=== PATIENT | male | born 1955 | race Caucasian/White ===

== ENCOUNTER 2018-05-10 04:44 | Emergency (ER) | payer OTHER ==
[2018-05-10] MEDS ORDERED: Sodium Chloride 0.9% 10 ML Syringe FLUSH PRN (04:51)
[2018-05-10] MEDS ORDERED: Sodium Chloride 0.9% 1,000 ML IV ONE (04:51)
[2018-05-10] MEDS ORDERED: Pantoprazole 40 MG Vial IVPUSH ONE (04:51)
[2018-05-10] MEDS ORDERED: Famotidine 20 MG/2 ML SDV IVPUSH ONE (04:51)
[2018-05-10] MEDS ORDERED: Ondansetron 4 MG/2 ML SDV IVPUSH ONE (04:51)
--- NOTE | 2018-05-10 05:01 | EDM.PDOC ---
ED HPI GENERAL MEDICAL PROBLEM - General Chief Complaint: General Stated Complaint: shaky Time Seen by Provider: 05/10/18 04:50 Source of Information: Reports: Patient, RN, RN Notes Reviewed History Limitations: Reports: No Limitations - History of Present Illness INITIAL COMMENTS - FREE TEXT/NARRATIVE: Patient presents to the ED at [facility] complaining of shaking. Patient states he "felt funny" after he ate at a local restaurant. He states he started having severe epigastric pain, nausea, and shakiness. The epigastric pain seem to resolve some, but the shakiness has progressively gotten worse. He denies any chest pain or SOB. No focal neurological issues he is aware of. He denies any diarrhea. No recent abdominal surgeries. He does not think he ate any under cooked foods. He has not experience these symptoms in the past. Onset Date: 05/09/18 - Related Data Allergies Allergy/AdvReac Type Severity Reaction Status Date / Time No Known Allergies Allergy Verified 05/10/18 04:44 Home Meds: Home Meds amLODIPine Besylate [Amlodipine Besylate] 10 mg PO DAILY 05/10/18 [History] Past Medical History Cardiovascular History: Reports: Hypertension Social & Family History - Tobacco Use Smoking Status *Q: Former Smoker Used Tobacco, but Quit: Yes Month/Year Tobacco Last Used: 20 years ED ROS GENERAL - Review of Systems Review Of Systems: See Below Constitutional: Denies: Fever, Chills Respiratory: Denies: Shortness of Breath, Cough Cardiovascular: Denies: Chest Pain, Palpitations GI/Abdominal: Reports: Abdominal Pain (epigastric), Nausea. Denies: Black Stool , Bloody Stool, Diarrhea, Vomiting Skin: Reports: No Symptoms Neurological: Reports: Other (shakiness). Denies: Confusion, Dizziness, Headache ED EXAM, GENERAL - Physical Exam Exam: See Below Exam Limited By: No Limitations General Appearance: Alert, No Apparent Distress Respiratory/Chest: No Respiratory Distress, Lungs Clear, Normal Breath Sounds Cardiovascular: Normal Peripheral Pulses, Tachycardia Peripheral Pulses: 2+: Radial (L), Radial (R) GI/Abdominal: Soft, Tender (epigastric), Abnormal Bowel Sounds (hypoactive) Neurological: Alert, Oriented Skin Exam: Warm, Dry, Intact, Normal Color EKG INTERPRETATION EKG Date: 05/10/18 Time: 05:19 Rhythm: NSR Rate (Beats/Min): 90 [place]: Normal P-Wave: Present QRS: Normal ST-T: Normal QT: Normal MT/PQ Interval: 0.21 Comparison: NA - No Prior EKG EKG Interpretation Comments: 1. Sinus Rhythm with 1st degree AVB Course - Vital Signs Last Recorded V/S: Last Vital Signs Temp 36.4 C 05/10/18 04:45 Pulse 106 H 05/10/18 04:45 Resp 20 05/10/18 04:45 BP 150/76 H 05/10/18 04:45 Pulse Ox 96 05/10/18 04:45 - Orders/Labs/Meds Orders: Active Orders 24 hr Category Date Time Status EKG 12 Lead [EKG Documentation Completion] [RC] STAT Care 05/10/18 04:54 Active UA W/MICROSCOPIC [URIN] Stat Lab 05/10/18 04:52 Ordered Sodium Chloride 0.9% [Saline Flush] Med 05/10/18 04:51 Active 10 ml FLUSH ASDIRECTED PRN Peripheral IV Insertion Adult [OM.PC] Routine Oth 05/10/18 04:51 Ordered Medication Orders Sodium Chloride (Saline Flush) 10 ml FLUSH ASDIRECTED PRN PRN Reason: Keep Vein Open Labs: Laboratory Tests 05/10/18 05/10/18 Range/Units 05:09 05:09 WBC 7.2 (4.0-10.0) x10^3/uL RBC 3.82 L (4.5-6.0) x10^6/uL Hgb 13.6 L (14.0-18.0) g/dL Hct 37.7 L (40.0-52.0) % MCV 98.7 H (78.0-93.0) fL MCH 35.6 H (26.0-32.0) pg MCHC 36.1 H (32.0-36.0) g/dL RDW Coeff of Cassandra 12.3 (10.0-15.0) % Plt Count 191 (130-400) x10^3/uL Neut % (Auto) 63.8 (50.0-80.0) % Lymph % (Auto) 22.2 L (25.0-50.0) % [place] % (Auto) 9.1 (2.0-11.0) % Eos % (Auto) 4.1 H (0.0-4.0) % Baso % (Auto) 0.8 (0.2-1.2) % Sodium 142 (136-145) mmol/L Potassium 4.1 (3.5-5.1) mmol/L Chloride 106 (98-107) mmol/L Carbon Dioxide 28 (21-32) mmol/L Anion Gap 12.1 (10-20) mmol/L BUN 16 (7-18) mg/dL Creatinine 1.0 (0.70-1.30) mg/dL Est Cr Clr Drug Dosing TNP Estimated GFR (MDRD) > 60 Glucose 113 H (74-106) mg/dL Calcium 8.8 (8.5-10.1) mg/dL Corrected Calcium 9.04 (8.5-10.1) mg/dL Total Bilirubin 1.2 H (0.2-1.0) mg/dL AST 15 (15-37) U/L ALT 22 (16-63) U/L Alkaline Phosphatase 98 (46-116) U/L Creatine Kinase 127 (39-308) U/L Troponin I < 0.017 (<=0.056) ng/mL Total Protein 7.2 (6.4-8.2) g/dL Albumin 3.7 (3.4-5.0) g/dL Globulin 3.5 Albumin/Globulin Ratio 1.06 Amylase 62 (25-115) U/L Lipase 146 (73-393) U/L Meds: Medications Generic Name Dose Route Start Last Admin Trade Name Freq PRN Reason Stop Dose Admin Sodium Chloride 10 ml 05/10/18 04:51 Saline Flush FLUSH ASDIRECTED PRN Keep Vein Open Discontinued Medications Generic Name Dose Route Start Last Admin Trade Name Freq PRN Reason Stop Dose Admin Famotidine 20 mg 05/10/18 04:51 05/10/18 05:13 Pepcid IVPUSH 05/10/18 04:52 20 mg ONETIME ONE Administration Sodium Chloride 1,000 mls @ 999 mls/hr 05/10/18 04:51 05/10/18 05:05 Normal Saline IV 05/10/18 05:51 999 mls/hr ONETIME ONE Administration Ondansetron HCl 4 mg 05/10/18 04:51 05/10/18 05:10 Zofran IVPUSH 05/10/18 04:52 4 mg ONETIME ONE Administration Pantoprazole Sodium 40 mg 05/10/18 04:51 05/10/18 05:11 Protonix Iv IVPUSH 05/10/18 04:52 40 mg ONETIME ONE Administration Departure - Departure Time of Disposition: 05:57 Disposition: Home, Self-Care 01 Condition: Good Clinical Impression: Gastritis Qualifiers: Gastritis type: unspecified gastritis Chronicity: acute Gastritis bleeding: without bleeding Qualified Code(s): K29.00 - Acute gastritis without bleeding - Discharge Information *PRESCRIPTION DRUG MONITORING PROGRAM REVIEWED*: Not Applicable *COPY OF PRESCRIPTION DRUG MONITORING REPORT IN PATIENT NOREEN: Not Applicable Instructions: Gastritis, Adult Referrals: PCP,Unobtain [Primary Care Provider] - Forms: ED Department Discharge Additional Instructions: 1. Stay well hydrated and rest 2. Probably avoid greasy, fatty foods and see how it goes 3. Recommend starting on Prilosec once a day 4. See your Primary as symptoms warrant - Problem List Review Problem List Initiated/Reviewed/Updated: Yes - My Orders Last 24 Hours: My Active Orders 05/10/18 04:51 Sodium Chloride 0.9% [Saline Flush] 10 ml FLUSH ASDIRECTED PRN Peripheral IV Insertion Adult [OM.PC] Routine 05/10/18 04:52 UA W/MICROSCOPIC [URIN] Stat 05/10/18 04:54 EKG 12 Lead [EKG Documentation Completion] [RC] STAT - Assessment/Plan Last 24 Hours: My Active Orders 05/10/18 04:51 Sodium Chloride 0.9% [Saline Flush] 10 ml FLUSH ASDIRECTED PRN Peripheral IV Insertion Adult [OM.PC] Routine 05/10/18 04:52 UA W/MICROSCOPIC [URIN] Stat 05/10/18 04:54 EKG 12 Lead [EKG Documentation Completion] [RC] STAT Assessment:: Gastritis Plan: Labs and meds discussed with patient. Consider gastritis as patient responded well to GI meds. Recommend patient start on a PPI and follow up with PCP for possible further testing and treatment.
[2018-05-10 05:36] LABS: CHLORIDE,CL 106 mmol/L (98-107); SODIUM,NA 142 mmol/L (136-145)
[2018-05-10 05:42] LABS: ANION GAP 12.1 mmol/L (10-20)
== END 2018-05-10 06:10 | disposition home or self-care (01) ==
LOC: VM.ED 04:44
DX: K29.00 Acute gastritis without bleeding (principal); Z87.891 Personal history of nicotine dependence; Z79.899 Other long term (current) drug therapy
CPT/HCPCS: 36415; 80053; 82150; 82550; 83690; 84484; 85025; 93005; 96361; 96374; 96375; 99284; C9113; J2405; J3490; J7030

== ENCOUNTER 2020-01-12 01:51 | Emergency (ER) | payer OTHER ==
[2020-01-12] MEDS ORDERED: Sodium Chloride 0.9% 10 ML Syringe FLUSH PRN (01:58)
[2020-01-12] MEDS ORDERED: Lactated Ringers 1,000 ML IV ONE (01:59)
--- NOTE | 2020-01-12 02:14 | EDM.PDOC ---
ED HPI GENERAL MEDICAL PROBLEM - General Chief Complaint: Chest Pain Time Seen by Provider: 01/12/20 01:52 Source of Information: Reports: Patient History Limitations: Reports: No Limitations - History of Present Illness INITIAL COMMENTS - FREE TEXT/NARRATIVE: Pt. presents to ER with complaints of palpitations. Pt. states that he noticed the "right side of his chest jumping" this evening while watching TV. The way he describes it, it sounds almost like a pectoral muscle spasm. He states that the sensation was all on the right. He states that he felt lightheaded and flushed. Denies ever having chest pain. No shortness of breath. Denies any jaw, arm, neck or back pain. Complains of mild nausea. Pt. states that he was outside all day yesterday and may have exerted himself. He states that he played 18 holes of golf. He denies any excessive caffeine, alcohol, or drug use. Pt. states that he has a similar episode approx. 3 years ago, but has had no problems since. Pt. has a history of coronary disease in his family, but denies it in himself. He does have a history of HTN and is on medication for this. Denies any fever or chills. No rashes. No cough of exposure to any ill contacts. Onset Date: 01/11/20 Onset Time: 21:30 Location: Reports: Chest, Generalized Associated Symptoms: Denies: Chest Pain - Related Data Allergies Allergy/AdvReac Type Severity Reaction Status Date / Time No Known Allergies Allergy Verified 05/10/18 04:44 Home Meds: Home Meds amLODIPine Besylate [Amlodipine Besylate] 10 mg PO DAILY 05/10/18 [History] Cyanocobalamin (Vitamin B12) [Vitamin B12] 01/12/20 [History] Fish Oil/[place]-3 Fatty Acids [Fish Oil 1,000 MG] 1 gm PO DAILY 01/12/20 [History ] Loratadine [Allergy] 1 tab PO DAILY 01/12/20 [History] Multivit-Min/Folic/Vit K/Lycop [Men's 50 Plus Multivitamin Tab] 1 each PO DAILY 01/12/20 [History] Turmeric Root Extract [Turmeric] 500 mg PO DAILY 01/12/20 [History] Past Medical History Cardiovascular History: Reports: Hypertension ED ROS GENERAL - Review of Systems Review Of Systems: See Below Constitutional: Reports: No Symptoms HEENT: Reports: No Symptoms Respiratory: Reports: No Symptoms Cardiovascular: Reports: Lightheadedness, Palpitations Endocrine: Reports: No Symptoms GI/Abdominal: Reports: No Symptoms : Reports: No Symptoms Musculoskeletal: Reports: No Symptoms Skin: Reports: No Symptoms Neurological: Reports: No Symptoms Psychiatric: Reports: No Symptoms Hematologic/Lymphatic: Reports: No Symptoms Immunologic: Reports: No Symptoms ED EXAM, GENERAL - Physical Exam Exam: See Below Exam Limited By: No Limitations General Appearance: Alert, WD/WN, No Apparent Distress Eye Exam: Bilateral Eye: EOMI, PERRL Nose: Normal Inspection, Normal Mucosa, No Blood Throat/Mouth: Normal Inspection, Normal Lips, Normal Teeth, Normal Gums, Normal Oropharynx, Normal Voice, No Airway Compromise Head: Atraumatic, Normocephalic Neck: Normal Inspection, Supple, Non-Tender, Full Range of Motion Respiratory/Chest: No Respiratory Distress, Lungs Clear, Normal Breath Sounds, No Accessory Muscle Use, Chest Non-Tender Cardiovascular: Normal Peripheral Pulses, Regular Rate, Rhythm, No Edema, No JVD , No Murmur Peripheral Pulses: 4+: Radial (R) GI/Abdominal: Soft, Non-Tender, No Distention, No Mass (Male) Exam: Deferred Rectal (Males) Exam: Deferred Back Exam: Normal Inspection, Full Range of Motion Extremities: Normal Inspection, Normal Range of Motion, Non-Tender, No Pedal Edema, Normal Capillary Refill Neurological: Alert, Oriented, CN II-XII Intact, Normal Cognition, Normal Gait, Normal Reflexes, No Motor/Sensory Deficits Psychiatric: Normal Affect, Normal Mood Skin Exam: Warm, Dry, Intact, Normal Color, No Rash Lymphatic: No Adenopathy EKG INTERPRETATION Rhythm: NSR [place]: Normal P-Wave: Present QRS: Normal ST-T: Normal QT: Normal Course - Vital Signs Last Recorded V/S: Last Vital Signs Temp 36.6 C 01/12/20 01:52 Pulse 76 01/12/20 02:48 Resp 16 01/12/20 02:48 BP 130/73 01/12/20 02:48 Pulse Ox 96 01/12/20 02:48 - Orders/Labs/Meds Orders: Active Orders 24 hr Category Date Time Status EKG Documentation Completion [RC] STAT Care 01/12/20 01:58 Active Lactated Ringers [Ringers, Lactated] 1,000 ml Med 01/12/20 01:59 Active IV ONETIME Sodium Chloride 0.9% [Saline Flush] Med 01/12/20 01:58 Active 10 ml FLUSH ASDIRECTED PRN Peripheral IV Insertion Adult [OM.PC] Routine Oth 01/12/20 01:58 Ordered Medication Orders Lactated Ringer's (Ringers, Lactated) 1,000 mls @ 1,000 mls/hr IV ONETIME ONE Stop: 01/12/20 02:58 Last Admin: 01/12/20 02:05 Dose: 1,000 mls/hr Sodium Chloride (Saline Flush) 10 ml FLUSH ASDIRECTED PRN PRN Reason: Keep Vein Open Labs: Laboratory Tests 01/12/20 01/12/20 01/12/20 Range/Units 02:05 02:05 02:05 WBC 6.0 (4.0-10.0) x10^3/uL RBC 3.90 L (4.5-6.0) x10^6/uL Hgb 13.3 L (14.0-18.0) g/dL Hct 37.3 L (40.0-52.0) % MCV 95.6 H D (78.0-93.0) fL MCH 34.1 H (26.0-32.0) pg MCHC 35.7 (32.0-36.0) g/dL RDW Coeff of Cassandra 12.0 (10.0-15.0) % Plt Count 171 (130-400) x10^3/uL Neut % (Auto) 54.8 (50.0-80.0) % Lymph % (Auto) 30.0 (25.0-50.0) % [place] % (Auto) 10.1 (2.0-11.0) % Eos % (Auto) 4.3 H (0.0-4.0) % Baso % (Auto) 0.8 (0.2-1.2) % PT 9.5 (9.5-12.3) SEC INR 0.9 L (2.0-3.5) Sodium 141 (136-145) mmol/L Potassium 4.1 (3.5-5.1) mmol/L Chloride 104 (98-107) mmol/L Carbon Dioxide 25 (21-32) mmol/L Anion Gap 16.1 (10-20) mmol/L BUN 12 (7-18) mg/dL Creatinine 0.8 (0.70-1.30) mg/dL Est Cr Clr Drug Dosing 99.35 mL/min Estimated GFR (MDRD) > 60 Glucose 109 H (74-106) mg/dL Calcium 8.6 (8.5-10.1) mg/dL Corrected Calcium 8.60 (8.5-10.1) mg/dL Phosphorus 3.8 (2.6-4.7) mg/dL Magnesium 1.9 (1.8-2.4) mg/dL Total Bilirubin 0.7 (0.2-1.0) mg/dL AST 7 L (15-37) U/L ALT 27 (16-63) U/L Alkaline Phosphatase 83 (46-116) U/L Troponin I < 0.017 (<=0.056) ng/mL Total Protein 7.4 (6.4-8.2) g/dL Albumin 4.0 (3.4-5.0) g/dL Globulin 3.4 Albumin/Globulin Ratio 1.18 TSH, Ultra Sensitive 7.953 H (0.358-3.74) uIU/mL Meds: Medications Generic Name Dose Route Start Last Admin Trade Name Freq PRN Reason Stop Dose Admin Lactated Ringer's 1,000 mls @ 1,000 mls/hr 01/12/20 01:59 01/12/20 02:05 Ringers, Lactated IV 01/12/20 02:58 1,000 mls/hr ONETIME ONE Administration Sodium Chloride 10 ml 01/12/20 01:58 Saline Flush FLUSH ASDIRECTED PRN Keep Vein Open - Re-Assessments/Exams Free Text/Narrative Re-Assessment/Exam: 01/12/20 02:52 Pt. was observed in ER for approx. 1 hour. He remained in a sinus rhythm at less than 100 during the stay. he was given a liter or lactated ringers and states that he felt much better. Departure - Departure Time of Disposition: 02:51 Disposition: Home, Self-Care 01 Clinical Impression: Palpitations, Elevated TSH - Discharge Information Instructions: Hypothyroidism, Palpitations, [id number] Referrals: PCP,Unobtain [Primary Care Provider] - Forms: ED Department Discharge Additional Instructions: [place] 5/325mg 1 every 4-6 hours as needed for pain Do not take any other tylenol with this Recheck in clinic regarding your blood pressure and pain Sepsis Event Note - Evaluation Sepsis Screening Result: No Definite Risk - Focused Exam Vital Signs: Vital Signs Temp Pulse Resp BP Pulse Ox 01/12/20 02:48 76 16 130/73 96 01/12/20 01:52 36.6 C 89 16 148/89 H 97 Date Exam was Performed: 01/12/20 Time Exam was Performed: 02:51 - My Orders Last 24 Hours: My Active Orders 01/12/20 01:58 EKG Documentation Completion [RC] STAT Sodium Chloride 0.9% [Saline Flush] 10 ml FLUSH ASDIRECTED PRN Peripheral IV Insertion Adult [OM.PC] Routine 01/12/20 01:59 Lactated Ringers [Ringers, Lactated] 1,000 ml IV ONETIME - Assessment/Plan Last 24 Hours: My Active Orders 01/12/20 01:58 EKG Documentation Completion [RC] STAT Sodium Chloride 0.9% [Saline Flush] 10 ml FLUSH ASDIRECTED PRN Peripheral IV Insertion Adult [OM.PC] Routine 01/12/20 01:59 Lactated Ringers [Ringers, Lactated] 1,000 ml IV ONETIME Plan: [place] 5/325mg 1 every 4-6 hours as needed for pain Do not take any other tylenol with this Recheck in clinic regarding your blood pressure and pain
[2020-01-12 02:46] LABS: ANION GAP 16.1 mmol/L (10-20); CHLORIDE,CL 104 mmol/L (98-107); SODIUM,NA 141 mmol/L (136-145)
== END 2020-01-12 03:00 | disposition home or self-care (01) ==
LOC: VM.ED 01:51
DX: R00.2 Palpitations (principal); R79.89 Other specified abnormal findings of blood chemistry; I10 Essential (primary) hypertension; Z79.899 Other long term (current) drug therapy
CPT/HCPCS: 80053; 83735; 84100; 84443; 84484; 85025; 85610; 93005; 96360; 99285; J7120; 93010; 99284-GF